=== PATIENT | male | born 1985 | race Caucasian/White ===

== ENCOUNTER 2018-07-08 05:04 | Inpatient (IN) ==
[2018-07-02 14:21] LABS: Appearance,Urine CLEAR; Bilirubin,Urine NEG (NEG); Color,Urine YELLOW; Glucose,Urine (UA) NEGATIVE (NEG); Leukocyte Esterase,Urine NEG /uL (NEG); Protein,Urine NEG (NEG); Specific Gravity,Urine 1.013 (1.000-1.035); Urine Blood NEG mg/dL (<0.03); Urobilinogen,Urine NEG (NEG)
[2018-07-02 15:54] LABS: Basophils # (Auto) 0 K/mcL (0.0-0.3); Basophils % (Auto) 0.2 % (0.0-2.0); Eosinophils # (Auto) 0.3 K/mcL (0.0-0.7); Eosinophils % (Auto) 3.6 % (0.0-7.0); Granulocytes % (Auto) 59.4 % (38.0-78.0); Lymphocytes # (Auto) 2.9 K/mcL (1.5-4.8); Lymphocytes % (Auto) 32.5 % (15.5-49.0); Mean Cell Volume 90.2 fL (80.0-100.0); Mean Corpuscular HGB Conc 33.3 g/dL (31.0-36.0); Monocytes # (Auto) 0.4 K/mcL (0.1-0.9); Monocytes % (Auto) 4.3 % (1.0-12.0); Platelet Count 287 K/mcL (140-440); RBC 4.92 M/mcL (4.50-5.90); Red Cell Distribution Width 13.1 % (11.5-14.5)
[2018-07-02 16:12] LABS: ALT/SGPT 68 U/l (0-40); Albumin 4.7 gm/dL (3.2-5.2); Albumin/Globulin Ratio 1.6 (1.0-2.3); Alkaline Phosphatase 87 U/L (39-117); Blood Urea Nitrogen 9 mg/dl (6-20)
[~2018-07-08 05:04] MED LIST: ceFAZolin 1 GM VIAL IV SCH
[2018-07-08] MEDS ORDERED: GLYCOPYRROLATE 0.2 MG/ML VIAL IV ONE (07:25)
[2018-07-08] MEDS ORDERED: fentaNYL 100 MCG/2 ML VIAL IV ONE (07:25)
[2018-07-08] MEDS ORDERED: PROPOFOL 200 MG/20 ML VIAL IV ONE (07:25)
[2018-07-08] MEDS ORDERED: MIDAZOLAM 2 MG/2 ML VIAL IV ONE (07:25)
[2018-07-08] MEDS ORDERED: DEXAMETHASONE 10 MG/ML VIAL IV ONE (07:25)
[2018-07-08] MEDS ORDERED: LIDOCAINE HCL/PF 100 MG/5 ML SYRINGE IV ONE (07:25)
[2018-07-08] MEDS ORDERED: ESMOLOL 100 MG/10 ML VIAL IV ONE (07:25)
[2018-07-08] MEDS ORDERED: ONDANSETRON 4 MG/2 ML VIAL IV ONE (07:25)
[2018-07-08] MEDS ORDERED: KETAMINE 100 MG/ML ML IV ONE (07:25)
[2018-07-08] MEDS ORDERED: TRANEXAMIC ACID 1,000 MG/10 ML VIAL IV ONE (07:25)
[2018-07-08] MEDS ORDERED: THROMBIN (BOVINE) 5,000 UNIT VIAL TOPICAL ONE (08:38)
[2018-07-08] MEDS ORDERED: CALCIUM GLUCONATE 4.65 MEQ/10 ML VIAL TOPICAL ONE (08:38)
[2018-07-08] MEDS ORDERED: HEPARIN 20,000 UNIT/ML VIAL IR ONE (08:42)
[2018-07-08] MEDS ORDERED: GUM MASTIC/STORAX/MSAL/ALCOHOL 1 DOSE DROPERETTE TOPICAL ONE (08:43)
[2018-07-08] MEDS ORDERED: GELATIN SPONGE,ABSORBABLE 1 EACH SPONGE TOPICAL ONE (08:45)
[2018-07-08] MEDS ORDERED: GELATIN SPONGE,ABSORBABLE 1 GM POWDER TOPICAL ONE (08:48)
[2018-07-08] MEDS ORDERED: METHOCARBAMOL 1,000 MG/10 ML VIAL IV PRN (10:36)
[2018-07-08] MEDS ORDERED: IPRATROPIUM/ALBUTEROL 3 ML AMPUL.NEB NEB PRN (10:36)
[2018-07-08] MEDS ORDERED: ACETAMINOPHEN 1,000 MG/100 ML BOTTLE IV ONE (10:36)
[2018-07-08] MEDS ORDERED: BENZOCAINE/MENTHOL 1 LOZENGE PO PRN ×2 (10:36→11:20)
[2018-07-08] MEDS ORDERED: HYDROmorphone 2 MG/ML VIAL IV PRN (10:36)
[2018-07-08] MEDS ORDERED: ONDANSETRON 4 MG/2 ML VIAL IV PRN (10:36)
[2018-07-08] MEDS ORDERED: MEPERIDINE 25 MG/ML SYRINGE IV PRN (10:36)
[2018-07-08] MEDS ORDERED: fentaNYL 100 MCG/2 ML VIAL IV PRN (10:36)
[2018-07-08] MEDS ORDERED: KETOROLAC 30 MG/ML VIAL IV PRN (10:36)
[2018-07-08] MEDS ORDERED: PROMETHAZINE 25 MG/ML VIAL IV PRN (10:36)
[2018-07-08] MEDS ORDERED: LACTATED RINGERS 1,000 ML IV SCH (10:45)
--- NOTE | 2018-07-08 10:54 | XRay Report ---
HISTORY: Lumbar decompression and fusion FINDINGS: Single lateral intraoperative films obtained at 833. There are retractors posterior to the spine. Metal instrument has been inserted through the pedicle of the L5 vertebra into the posterior body. There is a second smaller caliber instrument located along the superior endplate of L5. The L5-S1 disc space is normal in height. Moderate disc space narrowing is present at L3-4. IMPRESSION: Surgical instruments at the L5-S1 disc space level Interpreted and Authenticated by: Cameron Hull 07/08/18
--- NOTE | 2018-07-08 11:19 | Brief Operative Note ---
Date of procedure: 07/08/18 Pre-op diagnosis: isthmic spondylolisthesis [id number] Post-op diagnosis: same Procedure: PSIF Grafts/Implants: Yes (nuvasive) Anesthesia: GETA Findings: isthmic spondylo Complications: none Surgeon: Jesse Valdez Software Validation Technician: Vale Lin Estimated blood loss (cc): 150 Condition: stable Disposition: PACU
[2018-07-08] MEDS ORDERED: ONDANSETRON ODT 4 MG TABLET SL PRN (11:20)
[2018-07-08] MEDS ORDERED: BUPIVACAINE 0.25% 50 ML VIAL IJ ONE (11:21)
[2018-07-08] MEDS: 0.9 % SODIUM CHLORIDE 10 ML SYRINGE IV SCH ×2 (13:09→21:56)
[2018-07-08] MEDS: LACTATED RINGERS 1,000 ML IV SCH ×2 (13:09→21:56)
[2018-07-08] MEDS: HYDROcodone/APAP 10/325MG TABLET PO PRN (18:48)
[2018-07-08] MEDS: DOCUSATE SODIUM 100 MG CAPSULE PO SCH (20:32)
[2018-07-09] MEDS: 0.9 % SODIUM CHLORIDE 10 ML SYRINGE IV SCH ×2 (04:16→15:05)
[2018-07-09 06:20] LABS: Blood Urea Nitrogen 9 mg/dl (6-20)
--- NOTE | 2018-07-09 07:35 | Orthopedic Progress Note ---
Subjective Patient information: Note initiated : 07/09/18 at 7:33 am Service Date, if different from initiated Date: [] Patient: Wu Waddell 33 y/o M admitted on 07/08/18 for L5-S1 Decompression with Fusion. Chief Complaint: [] No complaints Principal diagnosis: spondylolisthesis Objective Vital signs: Vital Signs Temp Pulse Resp BP BP Pulse Ox 07/09/18 07:06 97.7 F 74 12 105/61 98 07/09/18 04:00 98.0 F 71 12 100/50 96 07/08/18 23:43 97.7 F 80 12 99/57 96 07/08/18 20:00 98.4 F 66 12 111/69 98 07/08/18 14:49 96/62 98 07/08/18 14:18 95/58 97 07/08/18 13:48 90/56 97 07/08/18 13:34 88/54 94 07/08/18 13:19 107/67 97 07/08/18 13:04 100/64 95 07/08/18 12:49 119/63 99 07/08/18 12:38 98.4 F 72 13 102/55 97 07/08/18 12:25 98.4 F 72 13 102/55 97 07/08/18 12:10 72 13 99/64 97 07/08/18 12:00 74 12 93/55 100 07/08/18 11:55 75 11 L 98/53 100 07/08/18 11:50 78 14 94/48 100 07/08/18 11:45 80 18 99/40 100 07/08/18 11:40 98.2 F 90 21 93/34 93/34 99 Intake and Output 07/08/18 07/09/18 07/09/18 21:59 05:59 13:59 Intake Total 900 / 900 Output Total 600 / 600 865 / 865 5 / 5 Balance -600 / -600 35 / 35 -5 / -5 Intake: Oral 900 / 900 Output: Drainage 100 / 100 40 / 40 5 / 5 Lower Back 100 / 100 40 / 40 5 / 5 Void Amount 500 / 500 825 / 825 Other: Meal Dinner Percent of Meal Consumed 75% Urine Appearance Clear Clear Urine Color Straw Bright Yellow Urine Odor Normal Normal # Voids 1 Weight 161 lb Intake & Output: Intake & Output 07/08/18 07/09/18 07/09/18 21:59 05:59 13:59 Intake Total 900 / 900 Output Total 600 / 600 865 / 865 5 / 5 Balance -600 / -600 35 / 35 -5 / -5 Weight 161 lb Intake: Oral 900 / 900 Output: Drainage 100 / 100 40 / 40 5 / 5 Lower Back 100 / 100 40 / 40 5 / 5 Void Amount 500 / 500 825 / 825 Other: Meal Dinner Percent of Meal Consumed 75% Urine Appearance Clear Clear Urine Color Straw Bright Yellow Urine Odor Normal Normal # Voids 1 Dressing: Yes clean, Yes dry Neurological exam IM: Yes neurovascular intact - Labs CBC & BMP: 07/09/18 04:41 07/09/18 04:41 Labs: Orthopedic Labs 07/02/18 13:23 PT 13.7 INR 1.0 07/09/18 07/02/18 04:41 13:23 Hgb 12.8 L 14.8 Hct 38.2 L 44.4 Assessment and Plan (1) Spondylisthesis doing well plan discharge Status: Acute
--- NOTE | 2018-07-09 07:38 | Discharge Summary ---
Providers - Providers Patient information: Note initiated : 07/09/18 at 7:36 am Service Date, if different from initiated Date: [] Patient: Wu Waddell 33 y/o M admitted on 07/08/18 for L5-S1 Decompression with Fusion. Chief Complaint: [] Date of admission: 07/08/18 Discharge date: 07/09/18 Attending physician: Jesse Valdez none Hospitalization Hospital course: uneventful Discharge diagnosis: spondylolisthesis Exam - Exam Clean and dry: Yes Weight bearing status: full Ortho Discharge - Spine - Patient Instructions Discharge Diet: Regular Diet Activity: activity as tolerated Spine Protocol: Limit bending and stooping. No heavy lifting. Wear brace/collar at all times except when showering and sleeping. Dressing Care: May shower in 2 days, Other (may remove dressing and shower pod 2 replace dry dressing post) Additional Dressing Instructions: May Shower 48 hours post-operative and replace with dry dressing after shower. - Problem Maintenance (1) Spondylisthesis Status: Acute - Follow Up Plan Follow Up Appointments: Esperanza Rodriguez PA-C [Physician [employer] Officer] - 07/23/18 11:00 am Disposition: Home, Self-Care Prognosis: Good Rehab Potential: Good - Orders For Discharge Prescriptions: HYDROcodone/APAP 10/325MG [[place] 10-325Mg] 1 - 2 tab PO Q4HP PRN #50 tablet PRN Reason: Pain Level 3-6 Methocarbamol [Robaxin-750] 750 mg PO PRN PRN #30 tablet PRN Reason: Muscle Spasm Pending Studies Resuscitation Status Full Code Diet Regular Diet Start Sun 3 Lunch Hydrocodone Bitart/Acetaminophen ([place] 10/325mg) 0 tab PO Q4HP PRN PRN Reason: PAIN LEVEL 3-6 Last Admin: 07/08/18 18:48 Dose: 1 tab Docusate Sodium (Colace) 100 mg PO BID MAURA Last Admin: 07/08/18 20:32 Dose: 100 mg Morphine Sulfate (Morphine) 0 mg IV Q1HP PRN PRN Reason: PAIN LEVEL > 6 Last Admin: 07/09/18 06:40 Dose: 2 mg Admin: 07/09/18 04:11 Dose: 2 mg Admin: 07/08/18 23:48 Dose: 2 mg Admin: 07/08/18 20:33 Dose: 2 mg Admin: 07/08/18 15:01 Dose: 4 mg Ondansetron HCl (Zofran Odt) 4 mg SL Q4HP PRN PRN Reason: Nausea And Vomiting Last Admin: 07/08/18 16:03 Dose: 4 mg Sodium Chloride (Saline Flush) 10 ml IV Q8 MAURA Last Admin: 07/09/18 04:16 Dose: 10 ml Admin: 07/08/18 21:56 Dose: Not Given Admin: 07/08/18 13:09 Dose: Not Given Shift Summary 07/09/18 05:20 Shift Summary by Akanksha Turner, runs on lower end of BP at baseline. A&Ox4. 2mg IV Morphine x 3. IV to R FA is SL. ROSALIND to R lower back, charges for 20min every 2 hours. Drainage decreasing in amount, sanguinous. Up to bathroom with SBA. Voiding well, last PVR 19. PT will bring in brace today. Initialized on 07/09/18 05:20 - END OF NOTE
[2018-07-09] MEDS: HYDROcodone/APAP 10/325MG TABLET PO PRN ×3 (08:42→13:49)
[2018-07-09] MEDS: DOCUSATE SODIUM 100 MG CAPSULE PO SCH (09:05)
--- NOTE | 2018-07-09 09:10 | Operative Note ---
DATE OF OPERATION: 07/08/2018 PREOPERATIVE DIAGNOSIS: Isthmic spondylolisthesis L5-S1 with back and radicular pain. POSTOPERATIVE DIAGNOSIS: Isthmic spondylolisthesis S1 with back and radicular pain. OPERATION PROPOSED: 1. Pierre laminectomy with decompression of neural elements. 2. Posterior nonsegmental instrumentation, L5-S1. 3. Posterior/posterolateral fusion L5-S1. 4. Application of prosthetic device interbody space and interbody fusion L5-S1. 5. Aspiration of bilateral iliac crest for osteoprogenitor cells. OPERATION PERFORMED: 1. Pierre laminectomy with decompression of neural elements. 2. Posterior nonsegmental instrumentation, L5-S1. 3. Posterior/posterolateral fusion L5-S1. 4. Application of prosthetic device interbody space and interbody fusion L5-S1. 5. Aspiration of bilateral iliac crest for osteoprogenitor cells. OPERATING SURGEON: Enoc Valdez MD TRANSFER CLERK: Vale Lin PA-C INDICATIONS: This is a gentleman who has had an isthmic spondylolisthesis. He has significant neural compression in the neural foramen. He has end lateral recess. He has failed conservative measures, would like to proceed with lumbar decompression and fusion. OPERATION IN DETAIL: Informed consent was obtained. The patient was taken to the operative and provided with appropriate anesthetic and prophylactic antibiotics. He was carefully positioned. His back was prepped sterilely. A midline incision was made. I dissected down to expose spinous process and lamina L4 through S1. I dissected laterally to expose the transverse process and sacral ala. I placed a marker and radiographs were obtained to confirm the level of dissection. I ultimately brought in fluoroscopy because his pedicles were somewhat aberrant in their generalized anatomy. We localized the level of dissection and then performed a decompression removing the significant portion of the lamina and facet joints through the pars defect, especially on the left where he had the bulk of his pain. I did save some of the facet on the right for fusion material. I skeletonized the pedicle and then worked out into the neural foramen thoroughly decompressing the neural foramen. At the end of the decompression the central canal, lateral recess, and neural foramen were very adequately patent. I then placed my posterior instrumentation. Again, this was pedicle screw construct. I passed a gearshift awl. I did bring in fluoroscopy and use this. I was also using EMG monitoring. I cannulated the pedicle with a gearshift awl; I tapped the pedicle and then placed an appropriate length pedicle screw at L5-S1, both on the right and on the left. I then aspirated the iliac crest for osteoprogenitor cells by advancing a Jamshidi type needle into the iliac crest. I aspirated and after every 10 to 15 mL of aspirate the needle was repositioned. This was performed bilaterally. The aspirate was passed to the back table where it was spun down for osteoprogenitor cells. I then performed the application prosthetic device interbody space and interbody fusion. This was done by mobilizing the nerve root towards the midline. I incised the annulus. I brought in a variety of dissectors and dilators. By turning these, I was able to obtain distraction across the disc space. Distraction was held with a working huey. I then extensively curetted the disc space debriding down to subchondral bone. The disc space was filled with morcellized bone graft. I then filled a cage also from [employer] with morcellized bone graft and was impacted into the site prepared for it. The posterior and posterolateral fusion was then performed. I extensively decorticated the posterolateral aspect of the spine. I packed morcellized graft into and against the decorticated posterolateral aspect of the spine to allow for fusion. The procedure was completed by compressing across the interbody graft, torqued the huey into the top of the pedicle screws. I irrigated thoroughly with pulsatile lavage and IrriSept prior to placing the bone graft. I closed over a deep drain with an 0 Vicryl interrupted fashion, 2-0 Vicryl in the deep dermal, and running subcuticular. The procedure was tolerated well. No complications. Estimated blood loss is 150 mL. GDNuris:diane Job ID: [id number] Doc ID: [id number] Jesse Valdez MD
== END 2018-07-09 14:10 | disposition home or self-care (01) | DRG 460 ==
LOC: MEDSUR 05:04
PROVIDERS: ADMIT Orthopaedic Surgery Orthopaedic Surgery of the Spine; ATTEND Orthopaedic Surgery Orthopaedic Surgery of the Spine
CPT/HCPCS: 97161